=== PATIENT | male | born 1975 | race Caucasian/White ===

== ENCOUNTER 2022-12-31 05:53 | Inpatient (IN) | payer OTHER ==
[2022-12-30 11:36] VITALS: BMI 33.0
[2022-12-31] MEDS ORDERED: Sodium Chloride 0.9% 100 ML ONE (07:02)
[2022-12-31] MEDS ORDERED: CEFAZOLIN 2 GM VIAL ONE (07:02)
[2022-12-31] MEDS ORDERED: fentaNYL 50 mcg/mL 1 mL Vial ONE ×5 (07:12→11:17)
[2022-12-31] MEDS ORDERED: Midazolam HCl 2 mg/2 ml Vial ONE (07:12)
[2022-12-31] MEDS ORDERED: Rocuronium Bromide 10 MG/ML (10ML VIAL) ONE (07:13)
[2022-12-31] MEDS ORDERED: PHENYLEPHRINE-NS 100 MCG/ML 10 ML SYRINGE ONE (07:13)
[2022-12-31] MEDS ORDERED: Lidocaine 1% PF 5 ML VIAL ONE (07:13)
[2022-12-31] MEDS ORDERED: PROPOFOL 200 MG/20 ML VIAL ONE (07:13)
[2022-12-31] MEDS ORDERED: Ketorolac Tromethamine 30 MG/ML VIAL ONE (07:13)
[2022-12-31] MEDS ORDERED: Bupivacaine HCl 0.5%/Epinephrine 1:200,000/PF 30 ml Vial ONE (07:13)
[2022-12-31] MEDS ORDERED: Fentanyl 250 MCG/5 ML VIAL ONE (07:37)
[2022-12-31] MEDS ORDERED: HYDROmorphone 2 MG/ML VIAL ONE (07:37)
[2022-12-31] MEDS ORDERED: Famotidine/PF 20 mg/2ml Vial ONE (07:41)
[2022-12-31] MEDS ORDERED: Meperidine HCl/PF 25 MG/ML VIAL SLOW IVP PRN (08:39)
[2022-12-31] MEDS ORDERED: Promethazine HCl 25 MG/ML VIAL IM PRN (08:39)
[2022-12-31] MEDS ORDERED: HYDROmorphone 2 MG/ML VIAL SLOW IVP PRN (08:39)
[2022-12-31] MEDS ORDERED: Ondansetron HCl/PF 4 MG/2 ML Vial IVP PRN (08:39)
[2022-12-31] MEDS ORDERED: Vancomycin 1 GM VIAL ONE (09:05)
[2022-12-31] MEDS ORDERED: SUGAMMADEX SODIUM 200 MG/2 ML VIAL ONE (09:21)
[2022-12-31] MEDS ORDERED: HYDROmorphone 0.5 MG/0.5 ML SYRINGE ONE ×3 (09:49→10:11)
[2022-12-31] MEDS ORDERED: Ondansetron PF 4 MG/2 ML Vial SLOW IVP PRN (10:31)
[2022-12-31] MEDS ORDERED: HYDROcodone/Acetaminophen 10/325 mg Tablet PO PRN (10:31)
[2022-12-31] MEDS ORDERED: ALPRAZolam 0.5 MG TAB PO PRN (10:34)
[2022-12-31] MEDS ORDERED: Communication Order-Pharmacy FS SCH (10:45)
[2022-12-31] MEDS ORDERED: TETANUS, DIPHTHERIA TOX,ADULT (TDVAX) 0.5 ML VIAL IM ONE (14:00)
[2022-12-31] MEDS: CEFAZOLIN 2 GM in Sodium Chloride 0.9% 100 ML IVPB SCH ×2 (14:07→21:42)
[2022-12-31] MEDS: HYDROcodone/Acetaminophen 10/325 mg Tablet PO PRN ×2 (18:31→20:16)
[2022-12-31] MEDS: Atorvastatin Calcium 40 MG TAB PO SCH (20:16)
[2022-12-31] MEDS: QUEtiapine 100 MG TAB PO SCH (20:16)
[2022-12-31] MEDS: Aspirin 81 mg Enteric Coated Tablet PO SCH (20:16)
[2023-01-01] MEDS: HYDROcodone/Acetaminophen 10/325 mg Tablet PO PRN ×6 (00:20→22:04)
[2023-01-01 05:20] LABS: #Eosinphils 0.2 thou/uL (0.0-0.7); #Monocytes 1.3 thou/uL (0.11-0.59); %Basophils 0.3 % (0.0-1.0); %Lymphocytes 20.7 % (21.0-51.0); %Monocytes 9.2 % (0.0-10.0); %Neutrophils 68.3 % (42.0-75.0); Hematocrit 25.6 % (42.0-52.0); Mean Corpuscular HGB CONC 31.3 g/dL (32.0-36.0); Mean Corpuscular Hemoglobin 27.9 pg (27.0-31.0); Mean Corpuscular Volume 89.2 fl (78.0-98.0); Mean Platelet Volume 8.6 fL (7.4-10.4); Platelet Count 382 10x3/uL (130-400); RBC Distribution Width 15.6 % (11.5-14.5); Red Blood Cell (RBC) Count 2.87 mill/uL (4.70-6.10); White Blood Cell (WBC) Count 14.6 10x3/uL (4.8-10.8)
[2023-01-01] MEDS: CEFAZOLIN 2 GM in Sodium Chloride 0.9% 100 ML IVPB SCH (05:54)
[2023-01-01] MEDS ORDERED: Lisinopril 20 MG TAB PO SCH (09:00)
[2023-01-01] MEDS ORDERED: Non-Formulary Item 1 EACH (Atorvastatin Calcium [Atorvastatin Calcium] 80 MG Tablet) PO SCH (09:00)
[2023-01-01] MEDS: Aspirin 81 mg Enteric Coated Tablet PO SCH ×2 (09:27→21:04)
[2023-01-01] MEDS: Lisinopril 20 MG TAB PO SCH (09:28)
[2023-01-01] MEDS: clonazePAM 1 MG TAB PO SCH (09:28)
[2023-01-01] MEDS: QUEtiapine 100 MG TAB PO SCH (21:04)
[2023-01-01] MEDS: Atorvastatin Calcium 40 MG TAB PO SCH (21:04)
[2023-01-02] MEDS: HYDROcodone/Acetaminophen 10/325 mg Tablet PO PRN ×3 (02:02→11:19)
[2023-01-02] MEDS: Aspirin 81 mg Enteric Coated Tablet PO SCH (08:11)
[2023-01-02] MEDS: Lisinopril 20 MG TAB PO SCH (08:12)
[2023-01-02] MEDS: clonazePAM 1 MG TAB PO SCH (08:12)
[2023-01-02] MEDS ORDERED: traMADol HCl 50 MG TAB PO SCH (10:59)
[2023-01-02] MEDS ORDERED: tiZANidine HCl 4 MG TAB PO SCH (10:59)
[2023-01-02 11:27] VITALS: BP 106/66; TEMP 98.1
== END 2023-01-02 11:40 | disposition home or self-care (01) | DRG 480 ==
LOC: SDC 05:53 → SURG A 12:21
PROVIDERS: ADMIT Orthopaedic Surgery; ATTEND Orthopaedic Surgery
PROC: 0QS604Z Reposition Right Upper Femur with Internal Fixation Device, Open Approach (ICD-10-PCS; principal; 2022-12-31)
DX: T84.89XA Other specified complication of internal orthopedic prosthetic devices, implants and grafts, initial encounter (principal); S72.001A Fracture of unspecified part of neck of right femur, initial encounter for closed fracture; M97.01XA Periprosthetic fracture around internal prosthetic right hip joint, initial encounter; I10 Essential (primary) hypertension; E78.00 Pure hypercholesterolemia, unspecified; F32.A Depression, unspecified; M19.90 Unspecified osteoarthritis, unspecified site; Y83.8 Other surgical procedures as the cause of abnormal reaction of the patient, or of later complication, without mention of misadventure at the time of the procedure; M10.9 Gout, unspecified; Z96.641 Presence of right artificial hip joint; Z98.890 Other specified postprocedural states; Z79.899 Other long term (current) drug therapy
CPT/HCPCS: 36415; 85025; 90714; C1713; J1170; J1885; J2250; J2704; J3010; J3370; J3490; S0028

== ENCOUNTER 2023-04-29 17:42 | Inpatient (IN) | payer OTHER, BC ==
[2023-04-29] MEDS ORDERED: HYDROcodone/Acetaminophen 7.5/325 mg Tablet ONE (18:30)
[2023-04-29] MEDS ORDERED: Ketorolac Tromethamine 30 MG/ML VIAL ONE (18:30)
[2023-04-29] MEDS ORDERED: Morphine 4 MG/ML VIAL ONE (19:12)
[2023-04-29 21:02] VITALS: BMI 33.0
[2023-04-29] MEDS ORDERED: Bisacodyl 10 MG SUPP PR PRN (21:56)
[2023-04-29] MEDS ORDERED: HYDROcodone/Acetaminophen 5/325 mg Tablet PO PRN (21:56)
[2023-04-29] MEDS ORDERED: Ondansetron PF 4 MG/2 ML Vial IVP PRN (21:56)
[2023-04-29] MEDS ORDERED: traMADol HCl 50 MG TAB PO PRN (21:56)
[2023-04-29] MEDS ORDERED: Acetaminophen 325 MG TAB PO PRN (21:56)
[2023-04-29] MEDS ORDERED: Milk Of Magnesia 30 ML UDCUP PO PRN (21:56)
[2023-04-29] MEDS ORDERED: Promethazine HCl 25 MG/ML VIAL IM PRN (21:56)
[2023-04-29] MEDS: Ketorolac Tromethamine 30 MG/ML VIAL IVP SCH (22:14)
[2023-04-30] MEDS: Morphine 4 MG/ML VIAL SLOW IVP PRN ×8 (00:01→21:33)
[2023-04-30] MEDS: Ketorolac Tromethamine 30 MG/ML VIAL IVP SCH ×3 (05:01→18:16)
[2023-04-30 05:57] LABS: #Basophils 0.1 thou/uL (0.0-0.2); #Eosinphils 0.5 thou/uL (0.0-0.7); #Neutrophils 6.1 thou/uL (1.40-6.50); %Basophils 0.5 % (0.0-1.0); %Eosinophils 4.5 % (0.0-10.0); %Lymphocytes 30.2 % (21.0-51.0); %Monocytes 9.4 % (0.0-10.0); %Neutrophils 55.2 % (42.0-75.0); Hematocrit 36.5 % (42.0-52.0); Hemoglobin 11.4 g/dL (14.0-18.0); Mean Corpuscular HGB CONC 31.2 g/dL (32.0-36.0); Mean Corpuscular Hemoglobin 26.8 pg (27.0-31.0); Mean Corpuscular Volume 85.7 fl (78.0-98.0); Mean Platelet Volume 9.3 fL (7.4-10.4); Platelet Count 248 10x3/uL (130-400); RBC Distribution Width 16.1 % (11.5-14.5); Red Blood Cell (RBC) Count 4.26 mill/uL (4.70-6.10)
[2023-04-30] MEDS ORDERED: Cyclobenzaprine 10 MG TAB PO PRN (07:39)
[2023-04-30] MEDS ORDERED: FLU VACC QS2023-24(6MOS UP)/PF 60 MCG/0.5 ML SYRINGE IM ONE ×2 (09:00→21:39)
[2023-04-30] MEDS: traMADol HCl 50 MG TAB PO PRN (09:46)
[2023-05-01] MEDS: Ketorolac Tromethamine 30 MG/ML VIAL IVP SCH ×4 (00:15→17:43)
[2023-05-01] MEDS: Morphine 4 MG/ML VIAL SLOW IVP PRN (02:41)
[2023-05-01] MEDS ORDERED: Ondansetron PF 4 MG/2 ML Vial ONE ×2 (07:26→08:33)
[2023-05-01] MEDS ORDERED: fentaNYL PF 100 MCG/2 ML SYRINGE ONE (07:26)
[2023-05-01] MEDS ORDERED: Dexamethasone 20 MG/5 ML VIAL ONE ×2 (07:26→08:33)
[2023-05-01] MEDS ORDERED: Lidocaine 1% PF 5 ML VIAL ONE ×2 (07:26→08:33)
[2023-05-01] MEDS ORDERED: Rocuronium Bromide 10 MG/ML (10ML VIAL) ONE ×2 (07:26→08:33)
[2023-05-01] MEDS ORDERED: Midazolam HCl 2 mg/2 ml Vial ONE (07:26)
[2023-05-01] MEDS ORDERED: PROPOFOL 20 ML ONE (07:26)
[2023-05-01] MEDS ORDERED: Sevoflurane 250 ML INH ANEST BOTTLE ONE (07:31)
[2023-05-01] MEDS ORDERED: Ropivacaine 0.5% HCl/PF (150 MG/30 ML VIAL) ONE (08:00)
[2023-05-01] MEDS ORDERED: Lidocaine 1% MPF 2 ML VIAL ONE (08:12)
[2023-05-01] MEDS ORDERED: HYDROmorphone 0.5 MG/0.5 ML SYRINGE ONE ×3 (08:27→12:24)
[2023-05-01] MEDS ORDERED: ePHEDrine Sulfate 50 MG/10 ML VIAL ONE ×2 (08:33→09:54)
[2023-05-01] MEDS ORDERED: PROPOFOL 200 MG/20 ML VIAL ONE (08:33)
[2023-05-01] MEDS ORDERED: PHENYLEPHRINE-NS 100 MCG/ML 10 ML SYRINGE ONE ×3 (08:33→10:11)
[2023-05-01] MEDS ORDERED: CEFAZOLIN 1 GM VIAL ONE ×2 (09:30)
[2023-05-01] MEDS ORDERED: Vancomycin 1 GM VIAL ONE ×2 (09:32→10:34)
[2023-05-01] MEDS ORDERED: Promethazine HCl 25 MG/ML VIAL IM PRN (10:47)
[2023-05-01] MEDS ORDERED: Ondansetron HCl/PF 4 MG/2 ML Vial IVP PRN (10:47)
[2023-05-01] MEDS ORDERED: HYDROmorphone 2 MG/ML VIAL SLOW IVP PRN (10:47)
[2023-05-01] MEDS ORDERED: SUGAMMADEX SODIUM 200 MG/2 ML VIAL ONE (10:56)
[2023-05-01] MEDS ORDERED: fentaNYL 50 mcg/mL 1 mL Vial ONE ×2 (11:41→11:56)
[2023-05-01] MEDS ORDERED: Ketorolac Tromethamine 30 MG/ML VIAL ONE (12:02)
[2023-05-01] MEDS: HYDROcodone/Acetaminophen 10/325 mg Tablet PO PRN ×2 (13:56→19:39)
[2023-05-01] MEDS: CEFAZOLIN 2 GM in Sodium Chloride 0.9% 100 ML IVPB SCH (17:43)
[2023-05-02] MEDS: Ketorolac Tromethamine 30 MG/ML VIAL IVP SCH ×4 (00:04→17:54)
[2023-05-02] MEDS: CEFAZOLIN 2 GM in Sodium Chloride 0.9% 100 ML IVPB SCH (01:43)
[2023-05-02 06:52] LABS: #Eosinphils 0.1 thou/uL (0.0-0.7); #Monocytes 1.3 thou/uL (0.11-0.59); %Basophils 0.1 % (0.0-1.0); %Eosinophils 0.5 % (0.0-10.0); %Lymphocytes 16.3 % (21.0-51.0); %Neutrophils 73.7 % (42.0-75.0); Hematocrit 25.2 % (42.0-52.0); Hemoglobin 8.1 g/dL (14.0-18.0); Mean Corpuscular HGB CONC 32.1 g/dL (32.0-36.0); Mean Corpuscular Hemoglobin 27.1 pg (27.0-31.0); Mean Corpuscular Volume 84.3 fl (78.0-98.0); Mean Platelet Volume 9.1 fL (7.4-10.4); Platelet Count 255 10x3/uL (130-400); RBC Distribution Width 15.9 % (11.5-14.5); Red Blood Cell (RBC) Count 2.99 mill/uL (4.70-6.10); White Blood Cell (WBC) Count 14.9 10x3/uL (4.8-10.8)
[2023-05-02] MEDS: Nicotine 14 MG PATCH TD SCH (13:06)
[2023-05-02] MEDS: HYDROcodone/Acetaminophen 10/325 mg Tablet PO PRN ×2 (17:54→22:38)
[2023-05-02] MEDS: traMADol HCl 50 MG TAB PO PRN (20:47)
[2023-05-03] MEDS: Ketorolac Tromethamine 30 MG/ML VIAL IVP SCH ×2 (00:25→05:23)
[2023-05-03 08:03] VITALS: BP 120/72; TEMP 98.3
[2023-05-03] MEDS: Nicotine 14 MG PATCH TD SCH (11:08)
== END 2023-05-03 11:23 | disposition home or self-care (01) | DRG 481 ==
LOC: ERS 17:42 → T4-B 20:04 → OBSVTOIN 05-01 13:54
PROVIDERS: ADMIT Orthopaedic Surgery; ATTEND Orthopaedic Surgery
PROC: 0QH606Z Insertion of Intramedullary Internal Fixation Device into Right Upper Femur, Open Approach (ICD-10-PCS; principal; 2023-05-01)
PROC: 0QP604Z Removal of Internal Fixation Device from Right Upper Femur, Open Approach (ICD-10-PCS; 2023-05-01)
PROC: 0QHB04Z Insertion of Internal Fixation Device into Right Lower Femur, Open Approach (ICD-10-PCS; 2023-05-01)
DX: T84.194A Other mechanical complication of internal fixation device of right femur, initial encounter (principal); S72.91XK Unspecified fracture of right femur, subsequent encounter for closed fracture with nonunion; T84.114A Breakdown (mechanical) of internal fixation device of right femur, initial encounter; M97.01XA Periprosthetic fracture around internal prosthetic right hip joint, initial encounter; I10 Essential (primary) hypertension; M10.9 Gout, unspecified
CPT/HCPCS: 36415; 85025; 86140; 87070; 87205; 90471; 90686; 96372; 96374; 96376; C1713; G0008; G0378; J0690; J1100; J1170; J1885; J2250; J2270; J2405; J2704; J2795; J3010; J3370; J3490

== ENCOUNTER 2023-12-07 10:03 | Outpatient (CLI) | payer OTHER, BC ==
[2023-12-07 11:26] LABS: #Basophils 0.06 10x3/uL (0.0-0.2); #Eosinphils 0.38 10x3/uL (0.0-0.5); #Monocytes 0.72 10x3/uL (0.0-1.1); #Neutrophils 5.63 10x3/uL (1.5-8.4); %Basophils 0.6 % (0.0-2.0); %Eosinophils 3.7 % (0.0-6.0); %Lymphocytes 34.2 % (18.0-47.0); %Monocytes 6.9 % (0.0-10.0); %Neutrophils 54.3 % (40.0-75.0); Hematocrit 40.7 % (38.8-50.0); Hemoglobin 13.9 g/dL (13.5-17.5); Mean Corpuscular HGB CONC 34.2 g/dL (32.0-36.0); Mean Corpuscular Hemoglobin 29.4 pg (27.0-33.0); Mean Corpuscular Volume 86.2 fL (81.2-95.1); Platelet Count 272 10x3/uL (150-450); RBC Distribution Width 13.6 % (11.5-14.5); Red Blood Cell (RBC) Count 4.72 10x6/uL (4.32-5.72); White Blood Cell (WBC) Count 10.4 10x3/uL (3.5-10.5)
[2023-12-07 12:03] LABS: Anion Gap 13 mmol/L (10-20); BUN (Urea Nitrogen) 9 mg/dL (8.9-20.6); Calc. Creatinine Clearance 0 mL/min (70-130); Calcium 9.7 mg/dL (7.8-10.44); Carbon Dioxide 27 mmol/L (22-29); Chloride 103 mmol/L (98-107); Estimated GFR 112; Glucose 127 mg/dL (70-105); Sodium 139 mmol/L (136-145)
== END 2023-12-07 10:04 | disposition home or self-care (01) ==
LOC: LABBT 10:03
PROVIDERS: ATTEND Orthopaedic Surgery
DX: Z01.812 Encounter for preprocedural laboratory examination (principal); S52.125G Nondisplaced fracture of head of left radius, subsequent encounter for closed fracture with delayed healing; S53.432 Radial collateral ligament sprain of left elbow
CPT/HCPCS: 80048; 85025

== ENCOUNTER 2023-12-15 09:37 | Day surgery (SDC) | payer OTHER ==
[2023-12-07 11:08] VITALS: BMI 32.5
[2023-12-15] MEDS ORDERED: Bupivacaine PF 0.5% 30 ML VIAL ONE (11:04)
[2023-12-15] MEDS ORDERED: Midazolam HCl 2 mg/2 ml Vial ONE (11:04)
[2023-12-15] MEDS ORDERED: fentaNYL 50 mcg/mL 1 mL Vial ONE (11:04)
[2023-12-15] MEDS ORDERED: Dexamethasone 20 MG/5 ML VIAL ONE (11:10)
[2023-12-15] MEDS ORDERED: Bupivacaine HCl 0.5%/Epinephrine 1:200,000/PF 30 ml Vial ONE (11:10)
[2023-12-15] MEDS ORDERED: CEFAZOLIN 2 GM VIAL ONE (13:27)
[2023-12-15] MEDS ORDERED: Sodium Chloride 0.9% 100 ML ONE (13:27)
[2023-12-15] MEDS ORDERED: PROPOFOL 40 ML ONE (13:37)
[2023-12-15] MEDS ORDERED: fentaNYL PF 100 MCG/2 ML SYRINGE ONE (13:37)
[2023-12-15] MEDS ORDERED: Lidocaine 1% PF 5 ML VIAL ONE (13:38)
[2023-12-15] MEDS ORDERED: Ondansetron PF 4 MG/2 ML Vial ONE (14:47)
[2023-12-15] MEDS ORDERED: HYDROcodone/Acetaminophen 5/325 mg Tablet ONE (16:29)
== END 2023-12-15 17:00 | disposition home or self-care (01) ==
LOC: SDC 09:37
PROVIDERS: ATTEND Orthopaedic Surgery
PROC: 0PRJ0JZ Replacement of Left Radius with Synthetic Substitute, Open Approach (ICD-10-PCS; principal; 2023-12-15)
DX: S52.125G Nondisplaced fracture of head of left radius, subsequent encounter for closed fracture with delayed healing (principal); S53.432 Radial collateral ligament sprain of left elbow; I10 Essential (primary) hypertension; E78.00 Pure hypercholesterolemia, unspecified; F32.A Depression, unspecified; M19.90 Unspecified osteoarthritis, unspecified site; M10.9 Gout, unspecified; Z96.641 Presence of right artificial hip joint; Z79.82 Long term (current) use of aspirin; Z79.899 Other long term (current) drug therapy; F17.290 Nicotine dependence, other tobacco product, uncomplicated
CPT/HCPCS: J0665; J1100; J2250; J2405; J2704; J3010; J3490